=== PATIENT | female | born 1960 | race Caucasian/White ===

== ENCOUNTER 2019-10-06 10:30 | Emergency (ER) | payer MEDICAID, SELFPAY ==
[2019-10-06 10:34] VITALS: BP 116/87; PULSE 67; RESP 17; TEMP 36.6; O2SAT 97; BMI 29.0
[2019-10-06 10:59] VITALS: BP 118/69; PULSE 84; O2SAT 96
--- NOTE | 2019-10-06 11:10 | HMH.EDGENADL ---
ED Disposition Clinical Impression: Bartholin's gland abscess Disposition: Home, Self-Care Condition on Discharge: Good Instructions: DI for Skin Abscess, DI for Bartholin Gland Cyst Additional Instructions: You have been evaluated for a Bartholin gland abscess. Please use sitz baths 2 times daily. Take antibiotics as prescribed. Take Tylenol and ibuprofen for pain. The wound packing may fall out in the next 24 hours. Prescriptions: ceFIXime [Cefixime] 400 mg PO DAILY #7 cap Transmission Status: Received by [facility] #[id number] clindamycin HCL [Clindamycin HCl 300mg Cap] 300 mg PO Q6 7 Days #28 cap Transmission Status: Received by [facility] #[id number] Referrals: Lashanda Yao [Primary Care Provider] - Time of Disposition: 12:02 - Critical Care Critical Care Time: No Attestation: On 10/06/19, the high probability of a clinically significant, sudden or life threatening deterioration of the following system(s) required my full and direct attention, intervention and personal management. The time I documented below is in addition to time spent performing reported procedures but includes the following listed in this critical care notation. Medical Decision Making - Medical Records Medical records reviewed: Yes: I reviewed the patient's medical records. - Rosendo Inquiry Pt receiving controlled substance: No Vital Signs: 10/06/19 10:34 10/06/19 10:59 10/06/19 11:21 Temperature 97.8 F Temperature Source Oral Pulse Rate Pulse Rate [Right Radial] 67 84 87 Respiratory Rate 17 Blood Pressure Blood Pressure [Right Arm] 116/87 118/69 104/51 L Blood Pressure Mean [Right Arm] 96 85 68 Blood Pressure Source [Right Arm] Automatic Cuff Automatic Cuff Blood Pressure Position [Right Arm] Sitting Sitting 02 Sat by Pulse Oximetry 97 96 97 Oxygen Delivery Method Room Air Room Air 10/06/19 12:01 Temperature 98.1 F Temperature Source Pulse Rate 78 Pulse Rate [Right Radial] Respiratory Rate 17 Blood Pressure 105/87 L Blood Pressure [Right Arm] Blood Pressure Mean [Right Arm] Blood Pressure Source [Right Arm] Blood Pressure Position [Right Arm] 02 Sat by Pulse Oximetry Oxygen Delivery Method Orders (Tests/Meds): ED MEDICATIONS Discontinued Medications Generic Name Dose Route Start Last Admin Trade Name Freq PRN Reason Stop Dose Admin Cocaine HCl 1 ml 10/06/19 10:45 08/22/20 11:06 Cocaine 4% Topical Soln 4ml Bottle TP 10/06/19 10:46 Not Given ONCE ONE Epinephrine HCl 1 mg 10/06/19 10:45 10/06/19 11:06 Epinephrine 1mg/Ml Amp TOPICAL 10/06/19 10:46 Not Given ONCE ONE Lidocaine HCl 1 ml 10/06/19 10:45 10/06/19 11:09 Lidocaine 4% Topical Soln 1ml TP 10/06/19 10:46 Not Given ONCE ONE Lidocaine HCl 5 ml 10/06/19 10:45 10/06/19 11:09 Lidocaine 1% 10ml Mdv SQ 10/06/19 10:46 Not Given ONCE ONE Lidocaine HCl 20 ml 10/06/19 11:09 10/06/19 11:10 Lidocaine 1% 20ml Mdv IJ 10/06/19 11:10 20 ml ONCE ONE Administration Lidocaine/Prilocaine 5 gm 10/06/19 11:09 10/06/19 11:10 Emla Cream 5gm Tube TP 10/06/19 11:10 1 dose ONCE ONE Administration Medical Decision Narrative: In summary this is a 59-year-old female presenting to the emergency department with an area of painful swelling on the right side of her labia. Presentation is most consistent with a Bartholin abscess. Patient is nontoxic-appearing without signs of systemic illness like fever or chills, nausea, vomiting Topical lidocaine applied over the area. Injected with lidocaine, abscess drained. Procedure well-tolerated. General Adult HPI - General Chief complaint: Skin/Abscess/Foreign Body Stated complaint: boil Time Seen by Provider: 10/06/19 11:10 Mode of Arrival: Ambulatory Limitations: No Limitations Description of Symptoms (Recalled from ER Triage Doc. by RN): Large abcess to the left side of patient labia since yesterday, pt denies f
[2019-10-06 11:21] VITALS: BP 104/51; PULSE 87; O2SAT 97
[2019-10-06 12:01] VITALS: BP 105/87; PULSE 78; RESP 17; TEMP 36.7; O2SAT 100
== END 2019-10-06 12:05 | disposition home or self-care (01) ==
PROVIDERS: Emergency Provider Emergency Medicine; PCP Family Medicine
DX: N75.1 Abscess of Bartholin's gland (principal); E11.9 Type 2 diabetes mellitus without complications; F17.210 Nicotine dependence, cigarettes, uncomplicated; Z79.84 Long term (current) use of oral hypoglycemic drugs
CPT/HCPCS: 56420; 96372; 99285

== ENCOUNTER 2020-06-11 16:53 | Emergency (ER) | payer MEDICAID, SELFPAY ==
[2020-06-11 16:53] VITALS: BP 150/72; PULSE 81; RESP 16; TEMP 36.9; O2SAT 98; BMI 25.0
--- NOTE | 2020-06-11 17:23 | CT_ITS ---
PROCEDURE INFORMATION: Exam: CT Abdomen And Pelvis Without Contrast Exam date and time: 06/11/20 05:23 PM Age: 60 years old Clinical indication: Abdominal tenderness; Prior surgery; Surgery date: 6+ months; Surgery type: Hysterectomy and appendectomy; Patient HX: H/o kidney stones; Additional info: Lt flank pain TECHNIQUE: Imaging protocol: Computed tomography of the abdomen and pelvis without contrast. Radiation optimization: All CT scans at this facility use at least one of these dose optimization techniques: automated exposure control; mA and/or kV adjustment per patient size (includes targeted exams where dose is matched to clinical indication); or iterative reconstruction. COMPARISON: No relevant prior studies available. FINDINGS: Tubes, catheters and devices: None noted. Lungs: Lung bases appear clear. Heart: No significant coronary calcifications. No cardiomegaly. No significant pericardial effusion. Liver: Normal. No mass. Gallbladder and bile ducts: Cholecystectomy. No ductal dilation. Pancreas: Normal. No ductal dilation. Spleen: Normal. No splenomegaly. Adrenal glands: Normal. No mass. Kidneys and ureters: Severe left hydronephrosis and hydroureter to the level of the pelvis, where there is a 6 mm obstructive calculus. At least 2 residual left lower pole calcifications. Left upper pole cyst. Stomach and bowel: Unremarkable. No obstruction. No mucosal thickening. Appendix: Appendectomy. Intraperitoneal space: Unremarkable. No free air. No significant fluid collection. Retroperitoneal space: No significant retroperitoneal inflammatory changes are noted. Vasculature: Unremarkable. No abdominal aortic aneurysm. Lymph nodes: Unremarkable. No enlarged lymph nodes. Urinary bladder: Unremarkable as visualized. Reproductive: Hysterectomy. Bones/joints: Internal fixation left hip. Sacral stimulator in place. No acute fracture. Soft tissues: Unremarkable. IMPRESSION: 1. Left distal ureteral calculus with severe left hydronephrosis and hydroureter. 2. Two residual calcifications in the left lower pole of the kidney. 3. Cholecystectomy. 4. Hysterectomy. 5. Appendectomy. 6. Sacral stimulator. 7. Left hip pinning.
[2020-06-11 17:26] LABS: Microscopic, Urine URINE MICROSCOPIC (MICROSCOPIC)
[2020-06-11 17:28] LABS: Appearance,Urine CLOUDY (Clear); Bilirubin,Urine Negative (Negative); Blood, Urine 2+ (Negative); Color,Urine YELLOW (Yellow); Glucose,Urine (UA) 3+ (Negative); Ketones,Urine Negative (Negative); Leukocyte Esterase,Urine Negative (Negative); Nitrate,Urine Negative (Negative); Protein,Urine Negative (Negative); Urobilinogen,Urine 0.2 EU/dl (0.2)
[2020-06-11 17:37] LABS: Basophils # 0.1 K/mm3 (0-0.2); Eosinophils # 0.1 K/mm3 (0.0-0.4); Eosinophils % 1.2 % (0.1-12.0); Hematocrit 53.9 % (37.0-47.0); Hemoglobin 17.3 g/dL (12.2-16.2); Lymphocytes # 2.7 K/mm3 (0.7-4.5); Lymphocytes % 29.6 % (10-50); Mean Corpuscular HGB Conc 32.1 g/dL (31.8-35.4); Mean Corpuscular Hemoglobin 30.4 pg (27.0-31.2); Mean Corpuscular Volume 94.5 fl (81-99); Mean Platelet Volume 9.5 fl (7.4-10.4); Monocytes # 0.4 K/mm3 (0.1-1.0); Monocytes % 4.6 % (1.7-9.3); Neutrophils # 5.7 K/mm3 (1.8-7.8); Neutrophils % 63.4 % (37.0-80.0); Platelet Count 208 K/mm3 (142-424); Red Cell Distribution Width 14.3 % (11.5-17.5)
[2020-06-11 17:44] LABS: Bacteria,Urine 3+ /lpf; Calcium Oxalate Crystals,Urine 2+ /lpf; Squamous Epithelial Cell,Urine 20-50 #/hpf (0-5); WBC,Urine 20-50 #/hpf (0-3)
[2020-06-11 17:46] LABS: Chloride 98 mmol/L (98-107); Potassium 4.3 mmoL/L (3.5-5.1); Sodium 134 mmol/L (136-145)
[2020-06-11 17:48] LABS: Amylase 65 U/L (30-110); Blood Urea Nitrogen 9 mg/dl (7-17); Creatinine Clearance Estimated 65 mL/min (50-200); Estimated Glomerular Filt Rate 85 ml/min (>60); GFR (African American) 103 ML/MIN (>60)
[2020-06-11 17:49] LABS: Alanine Aminotransferase 24 U/L (12-78); Albumin Level 4.3 g/dl (3.5-5.0); Albumin/Globulin Ratio 1.4 (1.1-1.8); Alkaline Phosphatase 218 U/L (38-126); Anion Gap 11.3 mEq/L (5-15); Aspartate Amino Transferase 29 U/L (14-36); Bilirubin,Total 0.5 mg/dl (0.2-1.3); Calcium 10.4 mg/dl (8.4-10.2); Carbon Dioxide 29 mmol/L (22.0-30.0); Lipase 389 U/L (23-300); Total Protein,Serum 7.3 g/dl (6.3-8.2)
[2020-06-11 17:52] LABS: Glucose 452 mg/dl (74-100)
[2020-06-11 18:16] VITALS: BP 132/73; PULSE 65; O2SAT 96
--- NOTE | 2020-06-11 18:49 | PC.NURSE ---
dr Uma brady
--- NOTE | 2020-06-11 18:51 | HMH.EDABDPAI ---
ED Disposition Clinical Impression: Kidney stone on left side Disposition: Home, Self-Care Condition on Discharge: Good Instructions: DI for Kidney Stones Prescriptions: Hydrocod/Acet 5/325 mg [[place] 5/325mg tablet] 1 tab PO Q4HP PRN #10 tablet PRN Reason: Moderate Pain Transmission Status: Received by [facility] # Tamsulosin HCl [Flomax 0.4mg capsule] 0.4 mg PO DAILY #10 cap Transmission Status: Pending to [facility] # Ondansetron [Zofran 4mg ODT] 4 mg PO BIDP PRN #10 tab PRN Reason: Nausea Transmission Status: Pending to [facility] # Referrals: Lashanda Yao [Primary Care Provider] - Krish Eaton MD [Staff Physician] - (Call in AM) - Critical Care Critical Care Time: No Attestation: On 06/11/20, the high probability of a clinically significant, sudden or life threatening deterioration of the following system(s) required my full and direct attention, intervention and personal management. The time I documented below is in addition to time spent performing reported procedures but includes the following listed in this critical care notation. Medical Decision Making - Medical Records Medical records reviewed: Yes: I reviewed the patient's medical records. - Rosendo Inquiry Pt receiving controlled substance: Yes Rosendo was queried for this patient: No Reason not queried -: Emergent pt cond-no time Risks and benefits of using a controlled substance: were discussed with pt by me Vital Signs: 06/11/20 16:53 06/11/20 18:16 Temperature 98.4 F Temperature Source Oral Pulse Rate 65 Pulse Rate [Right] 81 Respiratory Rate 16 Blood Pressure 132/73 Blood Pressure [Right Arm] 150/72 H Blood Pressure Mean [Right Arm] 98 02 Sat by Pulse Oximetry 98 96 Oxygen Delivery Method Room Air Room Air - Lab Data Lab Results 06/11/20 17:14: Urine Color Yellow, Urine Appearance Cloudy, Urine pH 6.0, Ur Specific [place] 1.020, Urine Protein Negative, Urine Glucose (UA) 3+, Urine Ketones Negative, Urine Blood 2+, Urine Nitrate Negative, Urine Bilirubin Negative, Urine Urobilinogen 0.2, Ur Leukocyte Esterase Negative, Urine RBC 10-20, Urine WBC 20-50, Ur Squamous Epith Cells 20-50, Calcium Oxalate Crystal 2+, Urine Bacteria 3+ 06/11/20 17:26: WBC 9.0, RBC 5.70 H, Hgb 17.3 H, Hct 53.9 H, MCV 94.5, MCH 30.4, MCHC 32.1, RDW 14.3, Plt Count 208, MPV 9.5, Neut % (Auto) 63.4, Lymph % (Auto) 29.6, [place] % (Auto) 4.6, Eos % (Auto) 1.2, Baso % (Auto) 1.0, Neut # (Auto) 5.7, Lymph # (Auto) 2.7, [place] # (Auto) 0.4, Eos # (Auto) 0.1, Baso # (Auto) 0.1 06/11/20 17:26: Sodium 134 L, Potassium 4.3, Chloride 98, Carbon Dioxide 29, Anion Gap 11.3, BUN 9, Creatinine 0.70, Estimated Creat Clear 65, Estimated GFR 85, Est GFR ( Amer) 103, Glucose 452 H*, Calcium 10.4 H, Total Bilirubin 0.5, AST 29, ALT 24, Alkaline Phosphatase 218 H, Total Protein 7.3, Albumin 4.3, Globulin 3.0, Albumin/Globulin Ratio 1.4, Amylase 65, Lipase 389 H Result diagrams: 06/11/20 17:26 06/11/20 17:26 Orders (Tests/Meds): ED MEDICATIONS Generic Name Dose Route Start Last Admin Trade Name Freq PRN Reason Stop Dose Admin Sodium Chloride 1,000 mls @ 999 mls/hr 06/11/20 17:30 06/11/20 17:32 Sod Chlor 0.9% 1000ml Bag IV 06/11/20 18:30 999 mls/hr .Q1H1M STEPHANIE Administration Discontinued Medications Generic Name Dose Route Start Last Admin Trade Name Freq PRN Reason Stop Dose Admin Hydromorphone HCl 1 mg 06/11/20 18:55 06/11/20 19:04 Hydromorphone 2mg/Ml Syringe IV 06/11/20 18:56 1 mg ONCE ONE Administration Morphine Sulfate 4 mg 06/11/20 17:23 06/11/20 17:34 Morphine 4mg/Ml Syringe IV 06/11/20 17:24 4 mg ONCE ONE Administration Ondansetron HCl 4 mg 06/11/20 17:23 06/11/20 17:32 Ondansetron 4mg/2ml Vial IV 06/11/20 17:24 4 mg ONCE ONE Administration ORDERS Category Date Time Status Urine Culture Stat Micro 06/11/20 17:14 Received
--- NOTE | 2020-06-11 19:24 | PC.NURSE ---
repage out to dr bowling at 192. MD speaking to dr bowling at this time.
[2020-06-11 19:52] VITALS: BP 128/73; PULSE 65; RESP 16; TEMP 36.9; O2SAT 97
== END 2020-06-11 20:50 | disposition home or self-care (01) ==
PROVIDERS: Emergency Provider Emergency Medicine; PCP Family Medicine
DX: N20.0 Calculus of kidney (principal); E11.65 Type 2 diabetes mellitus with hyperglycemia
CPT/HCPCS: 74176; 80053; 81001; 82150; 83690; 85025; 87086; 96375; 99283; J2405

== ENCOUNTER → 2020-06-17 12:37 | Outpatient (CLI) | payer MEDICAID, SELFPAY ==
[2020-06-17 18:03] LABS: Coronavirus 19 IgG Antibody Negative (Negative); Coronavirus 19 IgM Antibody Negative (Negative)
== END ==
PROVIDERS: Visit Provider Urology
DX: Z01.812 Encounter for preprocedural laboratory examination (principal); Z20.822 Contact with and (suspected) exposure to COVID-19; N20.1 Calculus of ureter
CPT/HCPCS: 36415; 86328

== ENCOUNTER 2020-06-19 08:13 | Day surgery (SDC) | payer MEDICAID, SELFPAY ==
[2020-06-17 10:52] VITALS: BMI 24.2
[2020-06-19] VITALS (11 sets, daily range): BP systolic 103–156; BP diastolic 52–79; PULSE 96–114; RESP 12–18; TEMP 36.6–37.1; O2SAT 93–98
[2020-06-19 08:43] LABS: Basophils # 0.1 K/mm3 (0-0.2); Eosinophils # 0.1 K/mm3 (0.0-0.4); Eosinophils % 1.3 % (0.1-12.0); Hematocrit 52.9 % (37.0-47.0); Hemoglobin 17.8 g/dL (12.2-16.2); Lymphocytes # 2.1 K/mm3 (0.7-4.5); Lymphocytes % 26.2 % (10-50); Mean Corpuscular HGB Conc 33.7 g/dL (31.8-35.4); Mean Corpuscular Hemoglobin 30.5 pg (27.0-31.2); Mean Corpuscular Volume 90.6 fl (81-99); Mean Platelet Volume 9.2 fl (7.4-10.4); Monocytes # 0.4 K/mm3 (0.1-1.0); Neutrophils # 5.3 K/mm3 (1.8-7.8); Neutrophils % 66.5 % (37.0-80.0); Platelet Count 192 K/mm3 (142-424); Red Blood Count 5.84 M/mm3 (4.20-5.40); Red Cell Distribution Width 14.1 % (11.5-17.5); White Blood Count 7.9 K/mm3 (4.8-10.8)
[2020-06-19 08:50] LABS: Chloride 98 mmol/L (98-107); Potassium 3.2 mmoL/L (3.5-5.1); Sodium 136 mmol/L (136-145)
[2020-06-19 08:53] LABS: Alanine Aminotransferase 27 U/L (12-78); Albumin Level 4.4 g/dl (3.5-5.0); Albumin/Globulin Ratio 1.4 (1.1-1.8); Alkaline Phosphatase 223 U/L (38-126); Anion Gap 14.2 mEq/L (5-15); Aspartate Amino Transferase 30 U/L (14-36); Bilirubin,Total 0.7 mg/dl (0.2-1.3); Blood Urea Nitrogen 11 mg/dl (7-17); Calcium 9.8 mg/dl (8.4-10.2); Carbon Dioxide 27 mmol/L (22.0-30.0); Creatinine Clearance Estimated 63 mL/min (50-200); Estimated Glomerular Filt Rate 125 ml/min (>60); GFR (African American) 151 ML/MIN (>60); Globulin 3.2 g/dL (1.3-3.2); Glucose 250 mg/dl (74-100); Total Protein,Serum 7.6 g/dl (6.3-8.2)
--- NOTE | 2020-06-19 11:19 | XR_ITS ---
PROCEDURE: XR KUB CLINICAL INDICATION: URETEROSCOPY COMPARISON: No exams were available for comparison FINDINGS: Fluoroscopy time: 1 minutes and 52 seconds. Three images are submitted 1 showing the ureteral scope in the left lower pelvic region with contrast in the urinary bladder the 2nd showing a wire in place looped in the region of the left kidney in the 3rd demonstrating some contrast into the left renal collecting system. IMPRESSION: Fluoroscopic guided left ureteroscopy Dictated by: Nahun Holder MD 06/19/2020 15:04 Nahun Holder MD in OV 06/19/2020 15:04
[2020-06-19 11:22] LABS: POC Glucose,Bedside 177 (70-110)
--- NOTE | 2020-06-19 11:54 | P.OP_ITS ---
Date of procedure: 06/19/20 Pre-op Diagnosis:: Left ureteral stone with severe hydronephrosis Post-op Diagnosis:: Passage of stone with resolution of hydronephrosis Procedure performed:: Left ureteroscopy with left retrograde pyelogram Surgeon:: Krish Eaton MD GREY ROLL MAN:: Other (Miguel Khan) Anesthesia: GETA Estimated blood loss (mL): 0 Clinical Note:: Patient is a 60-year-old white female with history of a left distal ureteral calculus and severe left-sided hydronephrosis. She presents today for urologic management. Operative findings:: Left ureteroscopy revealed no evidence of stone in the course of the ureter. A left retrograde pyelogram showed a normal course and caliber of the ureter with resolution of previously noted hydronephrosis. Operative note:: Patient taken to the operating room after informed consent was obtained. 6 placed on the operating table in the supine position and general anesthesia administered. Preoperative antibiotics and sequential compression devices placed. She was then placed into the dorsal lithotomy position and prepped and draped in the standard surgical fashion. A 22 English cystoscope passed into the urethra and into the bladder without difficulty. The bladder was examined in a systematic fashion and there was no evidence of mucosal abnormalities, stones, trabeculation or cellule formation. The ureteral orifices in their normal anatomic position and they were of normal caliber and appearance. A 0.035 guidewire passed into the left ureteral orifice and it passed into the left renal pelvis without resistance. On initial images there did appear to be a calcification in the region of the distal ureter. The cystoscope then removed and our semirigid ureteroscope was passed into the bladder and into the left ureter and up to the proximal ureter without evidence of stone. The scope then removed and our cystoscope replaced in a cone-tip catheter passed through the scope and a left retrograde pyelogram was performed showing a normal course and caliber of the ureter without evidence of filling defects or hydronephrosis. Drainage films showed good drainage from the left ureter. The bladder drained scope removed Urojet placed into the urethra. The patient tolerated procedure well Condition: stable Disposition: PACU Specimens:: None Complications:: None
--- NOTE | 2020-06-19 13:15 | P.PN_ITS ---
[facility] Anesthesia Checklist - Patient Identification Patient Identification: Arm Band - Structural Data Admitted From: Home Planned Operative Procedure/s: Left ureteroscopy Consent for Planned Operative Procedure(s) Verified: Yes Verified Documents: Surgical Consent, History and Physical - NPO Status Verified Time NPO: 00:00 - Additional verifications Anesthesia Reactions: No Hx Blood Transfusions: No Blood Transfusion Reaction: No - Airway Assessment C-Spine Mobility Assessed: Yes TMJ Mobility Assessed: Yes Dentition: Good Dentition - Neurological Assessment Level of Consciousness: Awake, Alert - Anesthesia Plan Anesthesia Risk discussed: Yes Anesthesia Plan: Verified ASA Class: III Anesthesia Type: General [facility] History Medical History: Reports:: Diabetes Mellitus Type 2, Hyperlipidemia Denies:: Cancer, Diabetes Mellitus Type 1, Internal Pacemaker, MRSA, Seizures *Have you ever received a pneumonia vaccine?: No *Have you received a flu vaccine this season?: Yes Other Medical History: Denies: Blood Transfusion Reaction Anesthesia experience/problems:: None Laterality Cases: Right: Arthroscopy Knee Other Surgeries: Yes: No Previous Surgery. No: Pacemaker Amputation: No Fractures: Yes (BILATERAL FEET) - *Social History Last grade of school completed: High school graduate Smoking Status: Current every day smoker Tobacco Type: cigarettes # Packs/Day (cigarettes): 1 Alcohol Intake: current Alcohol Intake Frequency:: holidays/special occasions only Substance Use Type: denies use *Occupational Status:: unemployed Housing: house Household Members: significant other *Travel in the last 8 weeks: None Family Hx:: Hypertension, Hyperlipidemia, Heart Attack
--- NOTE | 2020-06-19 13:16 | P.PN_ITS ---
[facility] Anesthesia Record Part I Intake, IV Amount: 900 Estimated blood loss (mL): 1 Urine output (mL): 0 Blood Pressure: 156/52 SaO2: 96 Pulse Rate: 114 Respiratory Rate: 12 Temperature: 98.2 F Patient is:: Awake, Drowsy Stable to PACU at:: 11:21
[2020-06-19 13:23] LABS: POC Glucose,Bedside 230 (70-110)
--- NOTE | 2020-06-20 09:29 | P.PN_ITS ---
[facility] Anesthesia Record Part II Discharge Time: 11:41 Destination: Surgical Day Care (OP Surgery) PACU nurse assessment reviewed?: Yes Patient Condition:: Good Anesthesia Complications:: None Swallowing reflex intact?: Yes Cyanosis?: No Blood Pressure: 136/70 Pulse Rate: 97 Temperature: 97.9 F Mental Status: Alert & Oriented Pain level:: 0 Nausea and/or vomitting:: None Intake, IV Amount: 0
[2020-06-20 09:30] VITALS: BP 136/70; PULSE 97; TEMP 36.6
== END 2020-06-19 13:05 | disposition home or self-care (01) ==
LOC: OR 08:14
PROVIDERS: PCP Family Medicine; Visit Provider Urology
PROC: (CPT 52352; principal; 2020-06-19 09:45)
DX: N13.2 Hydronephrosis with renal and ureteral calculous obstruction (principal); E11.9 Type 2 diabetes mellitus without complications; E78.5 Hyperlipidemia, unspecified; Z72.0 Tobacco use; Z82.49 Family history of ischemic heart disease and other diseases of the circulatory system; Z83.438 Family history of other disorder of lipoprotein metabolism and other lipidemia; Z82.3 Family history of stroke; Z79.84 Long term (current) use of oral hypoglycemic drugs; Z79.4 Long term (current) use of insulin; Z79.899 Other long term (current) drug therapy
CPT/HCPCS: 52005; 74018; 76000; 80053; 82962; 85025; 96374; J2405

== ENCOUNTER 2020-10-17 01:04 | Emergency (ER) | payer MEDICAID, SELFPAY ==
[2020-10-17 01:14] VITALS: BP 160/92; PULSE 83; RESP 26; TEMP 36.4; O2SAT 100; BMI 24.2
--- NOTE | 2020-10-17 01:21 | CT_ITS ---
PROCEDURE INFORMATION: Exam: CT Abdomen And Pelvis Without Contrast Exam date and time: 10/17/2020 1:21 AM Age: 60 years old Clinical indication: Nausea; Abdominal pain; Flank; Right; Prior surgery; Surgery type: Gallbladder, appendix, hernia, hysterectomy; Additional info: Right flank pain TECHNIQUE: Imaging protocol: Computed tomography of the abdomen and pelvis without contrast. Radiation optimization: All CT scans at this facility use at least one of these dose optimization techniques: automated exposure control; mA and/or kV adjustment per patient size (includes targeted exams where dose is matched to clinical indication); or iterative reconstruction. COMPARISON: CT ABDOMEN PELVIS WO CON 06/11/2020 5:41 PM FINDINGS: Mediastinal space: Small hiatal hernia. Liver: No acute findings. No mass. Gallbladder and bile ducts: The patient is status post cholecystectomy. Pancreas: No acute findings, focal abnormality or ductal dilation. Spleen: No splenomegaly or focal abnormality. Adrenal glands: Normal. No mass. Kidneys and ureters: 1 mm calculus in the distal right ureter with associated mild relative hydroureter and periureteral stranding and mild pelviectasis. Nonobstructing intrarenal calculi on the left. Simple appearing 3.4 cm left renal cyst. Stomach and bowel: No obstruction. No mucosal thickening. Appendix: No evidence of appendicitis. Intraperitoneal space: No free air. No significant fluid collection. Vasculature: No abdominal aortic aneurysm. Lymph nodes: No pathologically enlarged lymph nodes. Urinary bladder: Unremarkable as visualized. Reproductive: Status post hysterectomy. Bones/joints: Healing anterior right 6th rib fracture. Two surgical screws traverse the left femoral neck. Soft tissues: Neuro stimulator unit in the subcutaneous tissues overlying the buttocks on the left. IMPRESSION: 1. 1 mm calculus in the distal right ureter with associated mild obstructive uropathy. 2. Small hiatal hernia. 3. Healing anterior right 6th rib fracture. 4. Other chronic changes as described. COMMENTS: Consistent with the [employer]'s Incidental Findings Committee white paper (J Am Joseph Radiol 2018): Any incidental renal lesion less than 1 cm or classified as too small to characterize, or any incidental cystic renal lesion characterized as simple-appearing, is likely benign. No follow-up imaging is recommended for these lesions per consensus recommendations based on imaging criteria.
[2020-10-17 01:31] LABS: Basophils # 0.1 K/mm3 (0-0.2); Basophils % 1.5 % (0.1-2.0); Eosinophils # 0.1 K/mm3 (0.0-0.4); Eosinophils % 0.9 % (0.1-12.0); Hematocrit 54.5 % (37.0-47.0); Hemoglobin 17.6 g/dL (12.2-16.2); Lymphocytes # 2.8 K/mm3 (0.7-4.5); Lymphocytes % 29.1 % (10-50); Mean Corpuscular HGB Conc 32.4 g/dL (31.8-35.4); Mean Corpuscular Hemoglobin 30.6 pg (27.0-31.2); Mean Corpuscular Volume 94.5 fl (81-99); Monocytes # 0.5 K/mm3 (0.1-1.0); Monocytes % 5.6 % (1.7-9.3); Neutrophils % 62.9 % (37.0-80.0); Platelet Count 244 K/mm3 (142-424); Red Blood Count 5.76 M/mm3 (4.20-5.40); Red Cell Distribution Width 13.7 % (11.5-17.5); White Blood Count 9.5 K/mm3 (4.8-10.8)
[2020-10-17 01:35] LABS: Alanine Aminotransferase 23 U/L (12-78); Albumin Level 4.2 g/dl (3.5-5.0); Albumin/Globulin Ratio 1.4 (1.1-1.8); Alkaline Phosphatase 214 U/L (38-126); Amylase 60 U/L (30-110); Anion Gap 16.5 mEq/L (5-15); Aspartate Amino Transferase 28 U/L (14-36); Bilirubin,Total 0.8 mg/dl (0.2-1.3); Blood Urea Nitrogen 11 mg/dl (7-17); Calcium 9.6 mg/dl (8.4-10.2); Carbon Dioxide 28 mmol/L (22.0-30.0); Chloride 95 mmol/L (98-107); Creatinine Clearance Estimated 63 mL/min (50-200); Estimated Glomerular Filt Rate 85 ml/min (>60); GFR (African American) 103 ML/MIN (>60); Globulin 3.1 g/dL (1.3-3.2); Lipase 194 U/L (23-300); Potassium 3.5 mmoL/L (3.5-5.1); Sodium 136 mmol/L (136-145); Total Protein,Serum 7.3 g/dl (6.3-8.2)
[2020-10-17 01:40] LABS: Glucose 519 mg/dl (74-100)
[2020-10-17 01:41] LABS: C-Reactive Protein 4.9 mg/L (0-4)
[2020-10-17 01:54] LABS: Procalcitonin 0.074 ng/mL (0.0-2.0)
[2020-10-17 02:01] VITALS: BP 122/56; PULSE 75; O2SAT 96
--- NOTE | 2020-10-17 02:01 | HMH.EDGENADL ---
ED Disposition Clinical Impression: Renal colic on right side Diabetes mellitus Qualifiers: Diabetes mellitus type: type 2 Diabetes mellitus longterm insulin use: unspecified assistant terminal manager insulin use status Diabetes mellitus complication status: with other specified complication Qualified Code(s): E11.69 - Type 2 diabetes mellitus with other specified complication Disposition: Home, Self-Care Condition on Discharge: Good Instructions: DI for Kidney Stones Additional Instructions: fluids and call pcp this am Referrals: Lashanda Yao [Primary Care Provider] - Krish Eaton MD [Staff Physician] - - Critical Care Critical Care Time: No Attestation: On 10/17/20, the high probability of a clinically significant, sudden or life threatening deterioration of the following system(s) required my full and direct attention, intervention and personal management. The time I documented below is in addition to time spent performing reported procedures but includes the following listed in this critical care notation. Medical Decision Making - Medical Records Medical records reviewed: Yes: I reviewed the patient's medical records. - Rosendo Inquiry Pt receiving controlled substance: No Vital Signs: 10/17/20 01:14 10/17/20 02:01 Temperature 97.5 F L Temperature Source Oral Pulse Rate 75 Pulse Rate [Right] 83 Respiratory Rate 26 H Blood Pressure 122/56 L Blood Pressure [Right Arm] 160/92 H Blood Pressure Mean [Right Arm] 114 Blood Pressure Source [Right Arm] Automatic Cuff Blood Pressure Position [Right Arm] Supine 02 Sat by Pulse Oximetry 100 96 Oxygen Delivery Method Room Air - Lab Data Lab results reviewed: Yes: I reviewed the patient's lab results. Lab Results 10/17/20 01:15: WBC 9.5, RBC 5.76 H, Hgb 17.6 H, Hct 54.5 H, MCV 94.5, MCH 30.6, MCHC 32.4, RDW 13.7, Plt Count 244, MPV 10.0, Neut % (Auto) 62.9, Lymph % (Auto) 29.1, [place] % (Auto) 5.6, Eos % (Auto) 0.9, Baso % (Auto) 1.5, Neut # (Auto) 6.0, Lymph # (Auto) 2.8, [place] # (Auto) 0.5, Eos # (Auto) 0.1, Baso # (Auto) 0.1, ESR 5 10/17/20 01:15: Sodium 136, Potassium 3.5, Chloride 95 L, Carbon Dioxide 28, Anion Gap 16.5 H, BUN 11, Creatinine 0.70, Estimated Creat Clear 63, Estimated GFR 85, Est GFR ( Amer) 103, Glucose 519 H*, Calcium 9.6, Total Bilirubin 0.8, AST 28, ALT 23, Alkaline Phosphatase 214 H, C-Reactive Protein 4.9 H, Total Protein 7.3, Albumin 4.2, Globulin 3.1, Albumin/Globulin Ratio 1.4, Amylase 60, Lipase 194, Procalcitonin 0.074 10/17/20 01:16: Acetone Level None detected Result diagrams: 10/17/20 01:15 10/17/20 01:15 Orders (Tests/Meds): ED MEDICATIONS Generic Name Dose Route Start Last Admin Trade Name Freq PRN Reason Stop Dose Admin Sodium Chloride 1,000 mls @ 999 mls/hr 10/17/20 01:30 10/17/20 01:30 Sod Chlor 0.9% 1000ml Bag IV 10/17/20 02:30 999 mls/hr .Q1H1M STEPHANIE Administration Sodium Chloride 1,000 mls @ 999 mls/hr 10/17/20 02:30 10/17/20 02:18 Sod Chlor 0.9% 1000ml Bag IV 10/17/20 03:30 999 mls/hr .Q1H1M STEPHANIE Administration Sodium Chloride 1,000 mls @ 999 mls/hr 10/17/20 02:30 Sod Chlor 0.9% 1000ml Bag IV 10/17/20 03:30 .Q1H1M STEPHANIE Discontinued Medications Generic Name Dose Route Start Last Admin Trade Name Freq PRN Reason Stop Dose Admin Insulin Human Regular 5 unit 10/17/20 02:35 10/17/20 02:40 Insulin Human Regular 100 Units/Ml 10ml Vial IVP 10/17/20 02:36 5 unit ONCE ONE Administration Ketorolac Tromethamine 30 mg 10/17/20 01:21 10/17/20 01:24 Ketorolac 30mg/Ml Vial IV 10/17/20 01:22 30 mg ONCE ONE Administration Ondansetron HCl 4 mg 10/17/20 01:21 10/17/20 01:24 Ondansetron 4mg/2ml Vial IV 10/17/20 01:22 4 mg ONCE ONE Administration ORDERS Category Date Time Status Hemoglobin A1C Stat Lab 10/17/20 01:16 Received Urinalysis and Microscopic Stat Lab 10/17/20 01:22 Ordered - CT Data CT Scan: Abdomen, Pelvis Time Receive
[2020-10-17 02:02] LABS: Erythrocyte Sedimentation Rate 5 mm/hr (0-30)
[2020-10-17 02:04] LABS: Acetone, Serum (Rapid) None Detected (None Detect)
[2020-10-17 03:22] VITALS: BP 121/60; PULSE 72; RESP 17; TEMP 36.8; O2SAT 97
[2020-10-17 03:33] LABS: Hemoglobin A1C 13.6 % (4.0-6.0)
[2020-10-17 03:43] LABS: Microscopic, Urine URINE MICROSCOPIC (MICROSCOPIC)
[2020-10-17 03:45] LABS: Bilirubin,Urine Negative (Negative); Blood, Urine 2+ (Negative); Color,Urine YELLOW (Yellow); Glucose,Urine (UA) 3+ (Negative); Ketones,Urine 1+ (Negative); Leukocyte Esterase,Urine TRACE (Negative); Nitrate,Urine Negative (Negative); Protein,Urine TRACE (Negative); Specific Gravity, Urine 1.015 (1.005-1.030); Urobilinogen,Urine 0.2 EU/dl (0.2)
[2020-10-17 04:00] LABS: Appearance,Urine Cloudy (Clear)
[2020-10-17 04:01] LABS: Bacteria,Urine 1+ /lpf; Mucus,Urine 1+ /lpf
== END 2020-10-17 03:39 | disposition home or self-care (01) ==
PROVIDERS: Emergency Provider Emergency Medicine; PCP Family Medicine
DX: N23 Unspecified renal colic (principal); E11.65 Type 2 diabetes mellitus with hyperglycemia; E78.5 Hyperlipidemia, unspecified
CPT/HCPCS: 74176; 80053; 81001; 82009; 82150; 83036; 83690; 84145; 85025; 85651; 86140; 96365; 96366; 96375; 99283; J2405